=== PATIENT | female | born 1975 | race Caucasian/White ===

== ENCOUNTER 2023-01-28 16:45 | Emergency (ER) | payer MEDICAID ==
[~2023-01-28] VITALS: Ht 160 cm; Wt 59.0 kg
[2023-01-28 16:57] VITALS: PULSE 84; RESP 16
[2023-01-28 17:23] VITALS: BP 106/65; TEMP 98.2; O2SAT 99
[2023-01-28] MEDS ORDERED: METOCLOPRAMIDE HCL 10MG/2ML VIAL IV ONE (21:00)
[2023-01-28] MEDS ORDERED: SODIUM CHLORIDE 0.9% 1,000 ML IV ONE (21:00)
[2023-01-28] MEDS ORDERED: DIPHENHYDRAMINE 50MG/ML VIAL IV ONE (21:00)
[2023-01-28] MEDS ORDERED: KETOROLAC 15MG/ML VIAL IV ONE (21:00)
[2023-01-29] MEDS ORDERED: DIPHENHYDRAMINE 50MG/ML VIAL IV NR (00:15)
[2023-01-29] MEDS ORDERED: KETOROLAC 60MG/2ML VIAL IM ONE (00:15)
[2023-01-29] MEDS ORDERED: KETOROLAC 15MG/ML VIAL IV NR (00:15)
[2023-01-29] MEDS ORDERED: METOCLOPRAMIDE HCL 10MG/2ML VIAL IV NR (00:15)
== END 2023-01-29 03:43 | disposition home or self-care (01) ==
LOC: ER 16:45
DX: R51.9 Headache, unspecified (principal)
CPT/HCPCS: 96361; 99285; 70450; 96372; 96374; 96375; J7030; J1200; J1885; J2765; Z7610 ×2